=== PATIENT | female | born 1980 | race African-American/Black ===

== ENCOUNTER 2022-03-14 09:37 | Outpatient (CLI) | payer BC | END 2022-03-14 09:38 | disposition home or self-care (01) | LOC: TBSIIMAG 09:37 | PROVIDERS: ATTEND Neurological Surgery | DX: M54.16 Radiculopathy, lumbar region (principal); Z98.890 Other specified postprocedural states | CPT/HCPCS: 72100 ==

== ENCOUNTER 2022-05-09 08:49 | Outpatient (CLI) | payer BC | END 2022-05-09 08:50 | disposition home or self-care (01) | LOC: TBSIIMAG 08:49 | PROVIDERS: ATTEND Neurological Surgery | DX: M54.16 Radiculopathy, lumbar region (principal) | CPT/HCPCS: 72100 ==